=== PATIENT | male | born 1985 | race Asian ===

== ENCOUNTER 2017-03-21 08:35 | Emergency (ER) | payer MEDICAID ==
[~2017-03-21] VITALS: Ht 165.1 cm; Wt 88.6 kg
[2017-03-21] MEDS ORDERED: PROPARACAINE HCL 0.5% 15 ML OPHTHALMIC SOLUTION OD ONE (09:15)
[2017-03-21 10:00] VITALS: BP 146/90
[2017-03-21] MEDS ORDERED: GENTAMICIN SULFATE 0.3% OPHTHALMIC SOLUTION 5 ML OD ONE (10:00)
[2017-03-21] MEDS ORDERED: GENTAMICIN SULFATE 0.3% 3.5 GM OPHTHALMIC OINTMENT OD ONE (10:00)
== END 2017-03-21 10:33 | disposition home or self-care (01) ==
LOC: EMS 08:38
DX: S05.01XA Injury of conjunctiva and corneal abrasion without foreign body, right eye, initial encounter (principal); F12.90 Cannabis use, unspecified, uncomplicated; F17.210 Nicotine dependence, cigarettes, uncomplicated; X58.XXXA Exposure to other specified factors, initial encounter; Y93.89 Activity, other specified; Y92.89 Other specified places as the place of occurrence of the external cause; Y99.8 Other external cause status
CPT/HCPCS: 99284